=== PATIENT | female | born 1965 | race Caucasian/White ===

== ENCOUNTER 2020-05-25 22:53 | Emergency (ER) | payer OTHER ==
[2020-05-25 22:57] VITALS: BMI 29.2
[2020-05-25] MEDS ORDERED: DIPHTH,PERTUSS(ACELL),TET 0.5 ML DISP.SYRIN IM ONE ×2 (23:26→23:39)
--- NOTE | 2020-05-25 23:26 | PDOC ---
Rapid Medical Evaluation Chief Complaint: Injury Time Seen by Provider: 05/25/20 22:58 Medical Evaluation: Allergies Allergy/AdvReac Type Severity Reaction Status Date / Time No Known Drug Allergies Allergy Verified 05/25/20 22:57 Vital Signs Temp Pulse Resp BP Pulse Ox 98.3 F 95 H 18 131/80 96 05/25/20 22:54 05/25/20 22:54 05/25/20 22:54 05/25/20 22:54 05/25/20 22:54 05/25/20 23:24 I have performed a brief in person evaluation of this patient. CC: "I dropped a shelf on my toe." PE: Laceration to the nailbed of the second toe of the left foot. Distal phalanx is visualized through laceration. Orders: X-ray, Boostrix Patient to be evaluated by a main ED staff. Discharge Disposition - Diagnosis Nailbed laceration, toe - Discharge Dispostion Last Admission D/C Date: 07/08/13 - Referrals - Patient Instructions - Post Discharge Activity
--- NOTE | 2020-05-26 00:02 | PDOC ---
Documentation entered by Lily Wu SCRIBE, acting as scribe for Mariaa Rush MD. Mariaa Rush MD: This documentation has been prepared by the Jazmin mascorro Nirvannie, SCRIBE, under my direction and personally reviewed by me in its entirety. I confirm that the documentation accurately reflects all work, treatment, procedures, and medical decision making performed by me. Attending Attestation - Resident Resident Name: Richard Wyman - ED Attending Attestation I have performed the following: I have examined & evaluated the patient, The case was reviewed & discussed with the resident, I agree w/resident's findings & plan, Exceptions are as noted - HPI HPI: 05/26/20 00:03 The patient is a 54 year old female with no significant past medical history who presents to the ED after a shelf fell onto her left second toe. Patient states the nail of the toe came off. - Physicial Exam PE: 05/26/20 00:24 54 yo female p/w left second toenail missing left foot has no abrasions or lacerations, sensation is intact 05/26/20 00:26 - Medical Decision Making 05/26/20 00:27 xray of left foot no fracture evident wound cleaned/bacitracin applied /bandaged referred to radio interference trouble shooter Discharge - Discharge Information Problems reviewed: Yes Clinical Impression/Diagnosis: Nailbed laceration, toe - Follow up/Referral Referrals: Chris Watson MD [Staff Physician] - - Patient Discharge Instructions Additional Instructions: Please make a follow up appointment with a primary care doctor or radio interference trouble shooter (referrals provided here). Please take Tylenol as needed for any pain, and change the bandage once a day or as needed. If you experience any new, worsening, or concerning symptoms, including worsening pain, fever, chills, purulent discharge, worsening bleeding, or any other concerns, please return to the emergency department. - Post Discharge Activity
[2020-05-26] MEDS ORDERED: BACITRACIN 15 GM TUBE TOPICAL OINTMENT TP ONE (00:11)
--- NOTE | 2020-05-26 00:11 | PDOC ---
History of Present Illness - General Chief Complaint: Injury Stated Complaint: L FOOT INJURY Time Seen by Provider: 05/25/20 22:58 - History of Present Illness Initial Comments: Rhoda Layton is a 54 y/o female with non contributory PMH presenting today with left 2nd toe injury. Reports that she was cleaning her home when she dropped a shelf onto her left toe. Reports some bleeding, pain, and complete avulsion of the left toenail. She wrapped the toe in gauze and presented to the ED. No headache/dizziness/shortness of breath/chest pain/abd pain. Reports that she is able to bear weight on the foot. No other complaints or injuries. Past History - Medical History Allergies/Adverse Reactions: Allergies Allergy/AdvReac Type Severity Reaction Status Date / Time No Known Drug Allergies Allergy Verified 05/25/20 22:57 Home Medications: Ambulatory Orders Albuterol Sulfate [Proair Hfa] 1 - 2 inh PO TID PRN 07/06/13 Salmeterol/Fluticasone [Advair 500Mcg/50Mcg] 1 inh PO BID PRN 07/06/13 Asthma: Yes COPD: No - Immunization History Immunization Up to Date: Yes - Psycho-Social/Smoking History Smoking Status: Yes Smoking History: Current every day smoker Have you smoked in the past 12 months: Yes Number of Cigarettes Smoked Daily: 10 Cigars Per Day: 0 Information on smoking cessation initiated: No 'Breaking Loose' booklet given: 12/14/12 - Substance Abuse Hx (Audit-C & DAST Scrn) How often the patient has a drink containing alcohol: Never Score: In Men: 4 or > Positive; In Women: 3 or > Positive: 0 Screen Result (Pos requires Nsg. Audit-10AR): Negative In the last yr the pt used illegal drug/Rx for NonMed reason: No Score: Yes response is considered Positive: 0 Screen Result (Positive result requires Nsg. DAST-10): Negative Review of Systems - Review of Systems Comments:: GENERAL/CONSTITUTIONAL: No fever or chills. No weakness._ HEAD, EYES, EARS, NOSE AND THROAT: No change in vision. No change in hearing. No sore throat._ CARDIOVASCULAR: No chest pain or shortness of breath_ RESPIRATORY: Denies cough, hemoptysis_ GASTROINTESTINAL: No nausea, vomiting, diarrhea or constipation._ GENITOURINARY: No dysuria, frequency, or change in urination._ MUSCULOSKELETAL: Reports left 2nd toe pain and bleeding. No neck or back pain._ SKIN: No rash_ NEUROLOGIC: No headache, vertigo, loss of consciousness, or change in strength/sensation._ ENDOCRINE: No increased thirst. No abnormal weight change_ HEMATOLOGIC/LYMPHATIC: No anemia, easy bleeding, or history of blood clots._ ALLERGIC/IMMUNOLOGIC: No hives or skin allergy._ *Physical Exam - Vital Signs Last Vital Signs Temp Pulse Resp BP Pulse Ox 98.3 F 95 H 18 131/80 96 05/25/20 22:54 05/25/20 22:54 05/25/20 22:54 05/25/20 22:54 05/25/20 22:54 - Physical Exam GENERAL: Awake, alert, and oriented to person/place/time, in no acute distress_ HEAD: No signs of trauma, normocephalic, atraumatic _ EYES: PERRLA, EOMI, sclera anicteric, conjunctiva clear_ ENT: Hearing grossly normal, nares patent, oropharynx clear without exudates. No uvular deviation. Moist mucosa_ NECK: Normal ROM, supple, no lymphadenopathy, JVD, or masses_ LUNGS: No distress, speaks in full sentences, clear to auscultation bilaterally _ HEART: Regular rate and rhythm, normal S1 and S2, no murmurs appreciated, peripheral pulses normal and equal bilaterally._ ABDOMEN: Soft, nontender, normoactive bowel sounds. No guarding, no rebound. No masses_ EXTREMITIES: Normal inspection, Normal range of motion, no edema. No clubbing or cyanosis_ LLE: Inspection: Complete avulsion of left 2nd toe with minimal active bleeding. Mild TTP. Compartments soft and compressible, pain within proportion, no pain to passive stretch. Neurovascularly intact distally. Able to ambulate and bear weight. Knee stable to anterior/posterior drawer and varus/valgus stress Sensation: SPLT DP, SP, Tib, Estrella, Saph Motor: 5/5 EHL, 5/5 FHL, 5/5 TA, 5/5GS, 5/5 Quad, 5/5 Ham Vascular: 2+ DP/PT, all toes BCR <2 sec NEUROLOGICAL: Cranial nerves II through XII grossly intact. Normal speech, normal gait, no focal sensorimotor deficits _ SKIN: Warm, Dry, normal turgor, no rashes or lesions noted_ ED Treatment Course - Medications Given in the ED: ED Medications Discontinued Medications Generic Name Dose Route Start Last Admin Trade Name Loreto PRN Reason Stop Dose Admin Diphtheria/Tetanus/Acell Pertussis 0.5 ml 05/25/20 23:26 05/25/20 23:39 Boostrix - IM 05/25/20 23:27 0.5 ml .ONCE ONE Administration Medical Decision Making - Medical Decision Making 54F presenting after dropping a shelf on her left toe. Complete avulsion of 2nd left toenail. Neurovascularly intact distally. Able to bear weight. -XR left foot -wound care -podiatry f/u 05/26/20 00:11 XR left foot shows no obvious fracture. 2nd toe bandaged with gauze and bacitracin. Plan to d/c home with podiatry f/u. Wound care instructions and education provided. All questions answered. Return precautions given. Pt verbalized understanding and agreement with plan. Discharge - Discharge Information Problems reviewed: Yes Clinical Impression/Diagnosis: Nail avulsion of toe Qualifiers: Encounter type: initial encounter Qualified Code(s): S91.209A - Unspecified open wound of unspecified toe(s) with damage to nail, initial encounter Condition: Stable Disposition: HOME - Admission No - Follow up/Referral Referrals: Chris Watson MD [Staff Physician] - - Patient Discharge Instructions Additional Instructions: Please make a follow up appointment with a primary care doctor or commercial drone pilot (referrals provided here). Please take Tylenol as needed for any pain, and change the bandage once a day or as needed. If you experience any new, worsening, or concerning symptoms, including worsening pain, fever, chills, purulent discharge, worsening bleeding, or any other concerns, please return to the emergency department. - Post Discharge Activity
[2020-05-26] MEDS ORDERED: BACITRACIN 15 GM TUBE TOPICAL OINTMENT ONE (00:19)
[2020-05-26 00:45] VITALS: BP 115/59; PULSE 92; TEMP 97.9
== END 2020-05-26 00:45 | disposition home or self-care (01) ==
LOC: JER 22:53
PROC: 3E0234Z Introduction of Serum, Toxoid and Vaccine into Muscle, Percutaneous Approach (ICD-10-PCS; principal; 2020-05-25)
DX: S91.209A Unspecified open wound of unspecified toe(s) with damage to nail, initial encounter (principal)
CPT/HCPCS: 73630-TC-LT; 90715; 99284-25

== ENCOUNTER 2024-08-03 16:02 | Emergency (ER) | payer OTHER ==
[2024-08-03 16:15] VITALS: BP 137/78; PULSE 91; RESP 18; TEMP 98.3; BMI 29.2
[2024-08-03] MEDS ORDERED: BACITRACIN ZINC 15 GM TUBE TOPICAL OINTMENT ONE (17:35)
== END 2024-08-03 17:41 | disposition home or self-care (01) ==
LOC: JERFT 16:02
PROC: 0HQ0XZZ Repair Scalp Skin, External Approach (ICD-10-PCS; principal; 2024-08-03)
DX: S01.01XA Laceration without foreign body of scalp, initial encounter (principal); W22.8XXA Striking against or struck by other objects, initial encounter
CPT/HCPCS: 99282-25